=== PATIENT | female | born 1945 | race Caucasian/White ===

== ENCOUNTER 2017-02-13 05:40 | Day surgery (SDC) | payer MEDICARE, OTHER ==
[~2017-02-13 05:40] MED LIST: ALEVE220 M3 PO; ARMOUR THYROID60 M2 PO; LUNESTA3 M1 PO; LYRICA50 MG/CAP PO; MORPHINE SULFATE SC; PROPRANOLOL HCL10 M1 PO; VITAMIN D2000 UNI1 PO; XANAX0.25 M1 PO
== END 2017-02-13 14:30 ==
LOC: SRG 05:40 → SHSC 05:44 → ORW 10:19 → PACU 12:28 → SHSC 12:38
PROC: 0HBT0ZZ Excision of Right Breast, Open Approach (ICD-10-PCS; principal; 2017-02-13)
PROC: 07B50ZX Excision of Right Axillary Lymphatic, Open Approach, Diagnostic (ICD-10-PCS; 2017-02-13)
DX: D05.11 Intraductal carcinoma in situ of right breast (principal); I10 Essential (primary) hypertension; M19.90 Unspecified osteoarthritis, unspecified site; M79.7 Fibromyalgia; E03.9 Hypothyroidism, unspecified; Z90.49 Acquired absence of other specified parts of digestive tract; Z17.0 Estrogen receptor positive status [ER+]; Z98.890 Other specified postprocedural states; Z79.899 Other long term (current) drug therapy; Z88.8 Allergy status to other drugs, medicaments and biological substances; Z88.6 Allergy status to analgesic agent; Z91.040 Latex allergy status
CPT/HCPCS: A4648; A9520; J0690; J2250; J2765; Q9968

== ENCOUNTER 2017-02-23 09:48 | Day surgery (SDC) | payer MEDICARE, OTHER | END 2017-02-23 16:15 | disposition T | LOC: SRG 09:48 → SHSB 09:55 → PACU 14:13 → SHSB 15:10 | PROC: 0HBT0ZZ Excision of Right Breast, Open Approach (ICD-10-PCS; principal; 2017-02-23) | DX: C50.911 Malignant neoplasm of unspecified site of right female breast (principal); I10 Essential (primary) hypertension; M19.90 Unspecified osteoarthritis, unspecified site; M79.7 Fibromyalgia; G43.909 Migraine, unspecified, not intractable, without status migrainosus; E03.9 Hypothyroidism, unspecified; F41.9 Anxiety disorder, unspecified; K44.9 Diaphragmatic hernia without obstruction or gangrene; G50.0 Trigeminal neuralgia; Z79.899 Other long term (current) drug therapy; Z88.5 Allergy status to narcotic agent; Z88.6 Allergy status to analgesic agent; Z88.8 Allergy status to other drugs, medicaments and biological substances; Z91.040 Latex allergy status; Z87.891 Personal history of nicotine dependence; Z90.49 Acquired absence of other specified parts of digestive tract; Z90.710 Acquired absence of both cervix and uterus; Z90.89 Acquired absence of other organs; Z98.890 Other specified postprocedural states | CPT/HCPCS: J0690; J1170; J2765 ==